=== PATIENT | female | born 1955 | race Caucasian/White ===

== ENCOUNTER 2020-08-04 07:02 | Outpatient (NON) | payer BC, MEDICAID, SELFPAY ==
[2020-08-04 22:01] LABS: SARS-CoV-2 RNA PCR Negative
== END 2020-08-04 07:03 ==
PROVIDERS: PCP Internal Medicine; Visit Provider Nurse Practitioner
DX: Z20.828 Contact with and (suspected) exposure to other viral communicable diseases (principal); R68.89 Other general symptoms and signs
CPT/HCPCS: 87635; C9803; U0003

== ENCOUNTER 2021-08-17 12:03 | Outpatient (CLI) | payer MEDICAID, SELFPAY ==
--- NOTE | ~2021-08-17 | XR_ITS ---
EXAMINATION: XR wrist RT min 3V DATE: 08/17/2021 12:29 INDICATION: Right wrist osteoarthritis. TECHNIQUE: 4 views of right wrist were obtained. COMPARISON: None. FINDINGS: Scapholunate dissociation is noted. There is severe osteoarthritis of distal radioulnar estrellita nt and radiolunate joint. There is remodeling of distal ulna and proximal lunate, consistent with uln olunate impaction syndrome. There is moderate osteoarthritis of first carpometacarpal joint. Partiall y visualized is osteoarthritis of many of the metacarpophalangeal joints, severe at first metacarpoph alangeal joint. IMPRESSION: 1. Polyarticular osteoarthritis. 2. Scapholunate dissociation. Reviewed, dictated and finalized at location B. E ENGRAVER
--- NOTE | ~2021-08-17 | XR_ITS ---
EXAMINATION: XR wrist LT min 3V DATE: 08/17/2021 12:29 INDICATION: Left wrist osteoarthritis. TECHNIQUE: 4 views of left wrist were obtained. COMPARISON: Left hand radiographs 09/29/2016 FINDINGS: Scapholunate dissociation is noted. There is dorsal tilt of lunate, consistent with dorsal intercalated segmental instability. There is degenerative volume loss at radial aspect of lunate. The re is mild osteoarthritis of first carpometacarpal joint and moderate osteoarthritis of triscaphe estrellita nt. 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 3. Polyarticular osteoarthritis. Reviewed, dictated and finalized at location B. WRAPPER MACHINE OPERATOR
== END 2021-08-17 12:04 | disposition home or self-care (01) ==
LOC: ANHIMG 12:11
PROVIDERS: PCP Internal Medicine; Visit Provider Plastic Surgery
DX: M19.031 Primary osteoarthritis, right wrist (principal); M19.032 Primary osteoarthritis, left wrist
CPT/HCPCS: 73110

== ENCOUNTER 2021-08-24 02:25 | Day surgery (SDC) | payer OTHER, SELFPAY ==
[2021-08-17 10:17] VITALS: BMI 20.2
--- NOTE | 2021-08-17 10:26 | PC.NURSE ---
Report to the Outpatient Waiting Room, entrance under the green pavilion located off [facility], at time 0730 on date 08/24/21. OR Time: 0930. - You will be asked a series of questions to screen for COVID 19 for your protection. - A mask is required within the hospital. - No visitors are allowed at this time. Patient visitors will be guided where to wait when not with patient. Preoperative COVID Testing Requirements: TO BRING COVID CARD DOS No COVID Test needed if: (proof is required; if not received patient will have Rapid Test prior to entry) - Patient has received COVID Vaccine at least 14 days prior to procedure date or - Patient has positive COVID test result within last 90 days of surgery date. COVID Test needed if above criteria is not met If not COVID vaccinated a COVID test must be conducted within 72 hours of surgery and patient is asked to isolate self from time of testing until procedure. You will go to the [facility] [[email or web address]] Testing Site for your COVID testing. The [facility] site is located at the corner of [address] from [facility]. You will only be called if COVID results are positive and your surgeon may reschedule your elective surgery date. Patients may have clear liquids (water, carbonated beverages, clear teas, apple juice) until 3 hours prior to surgery with a maximum of 20 ounces. - No food from midnight until time of surgery Take the following medications with a SIP of water the morning of surgery: EYE DROPS Medications to discontinue per physician: VITAMINS/SUPPLEMENTS Date to take last dose: 08/20/21 STOP IBUPROFEN AND EXCEDRIN PER DR. ARREDONDO'S INSTRUCTIONS Please no make-up, nail mauritian, hairspray, perfume, deodorant, or body powder the day of surgery. No jewelry (including any body piercings) or valuables the day of surgery, leave them at home. Please take a shower or bath the night before, or the morning of, surgery with an antibacterial soap. Wear comfortable, loose fitting clothing. Children are encouraged to wear pajamas. - Jewelry must be removed prior to entering the operating room. Rings and piercings that are not removed may be cut off. - The hospital will not accept responsibility for valuables. - Please leave all valuables, including medications, at home the day of surgery. If you are going home after surgery, a licensed driver helper must drive you home. - NO public transportation without another adult. - We recommend that an adult stay with you for 24 hours following discharge. - We also recommend that you do not drive, make important decision, drink alcoholic beverages, or take any drugs that were not prescribed by your health care provider for at least 24 hours after your discharge time. Follow any additional instructions given to you from your surgeon. Telephone instructions given to ASIM ZABALA and asked if any additional questions and then verbalized understanding. Patient advised to call surgeon office or pre surgery nurse liaison [phone] if any additional questions.
--- NOTE | 2021-08-24 07:13 | WPDHPUPDATE1 ---
History and Physical Update Update Date/Time: 08/24/21 07:13 History and Physical has been reviewed, including an updated exam of the patient. There are NO changes in the patient's condition. Risks, benefits, and alternatives have been discussed and questions answered. Patient agrees to proceed with procedure.
[2021-08-24] MEDS: LACTATED RINGERS 1,000 ML 30 ML IV CONT (07:55)
[2021-08-24 08:08] VITALS: BP 120/60; PULSE 78; RESP 18; TEMP 36.5; O2SAT 100; BMI 20.1
--- NOTE | 2021-08-24 08:41 | WPDANESEPPF ---
Anes - Initial Pre Proc Eval Procedure: Operation Date: 08/24/21 09:30 Proposed Procedures p Left Open Carpal Tunnel Release - Richar Hung MD Date/Time: 08/24/21 08:41 Surgeon: Richar Hung MD Pre Op Diagnosis: Left Carpal Tunnel Syndrome Patient Data Age: 65 Gender: F Height: 1.64 m Weight: 54.15 kg Last Vital Signs Temp 36.5 C 08/24/21 08:08 Pulse 78 08/24/21 08:08 Resp 18 08/24/21 08:08 BP 120/60 08/24/21 08:08 Pulse Ox 100 08/24/21 08:08 Allergies Allergy/AdvReac Type Severity Reaction Status Date / Time penicillin G Allergy Unknown rash Verified 08/24/21 07:35 Penicillins Allergy Unknown rash Verified 08/24/21 07:35 Home Medications Medication Instructions Recorded Confirmed Type omega-3 fatty acids 500 mg capsule 500 mg PO DAILY 06/01/20 08/24/21 History alprazolam [Xanax] 0.5 mg PO HS 08/17/21 08/24/21 History bgydmvm-dukikzdcxhrvb-wfedmfby 1 tablet PO Q4-6H PRN 08/17/21 08/17/21 History [Excedrin Migraine] ibuprofen [Advil] 400 mg PO ONCE PRN 08/17/21 08/17/21 History lifitegrast [Xiidra] 1 drp EACH EYE BID 08/17/21 08/24/21 History Patient hx anesthesia problems: none Family hx anesthesia problems: none Results Review: All pre-operative results and documents have been reviewed as part of the pre-operative evaluation. [facility] Past Medical History Medical History Anxiety Hx of migraines Social History Social History Years smoked: 30 Smoking status: Current every day smoker Tobacco type: cigarettes Alcohol intake: current Drinks per week: 8 Substance use: never Substance use type: does not use Living arrangements: alone Spiritual care concerns: No Anes - Eval Final PreProcedure Day of Procedure 08/24/21 08:41 Patient weight: normal Heart: regular rate and rhythm Lungs: decreased breath sounds Airway: Mallampati scale class II Neurological: alert and oriented Last oral intake: >/= 8 hours ASA classification: III Emergent: no Anesthetic plan: proceed Anesthesia type and monitoring: general GIVS and standard monitoring Results Review: All pre-operative results and documents have been reviewed as part of the pre-operative evaluation. Informed Consent: The patient's anesthetic plan and its attendant risks and benefits were discussed with the patient/family/POA. Questions were solicited and answers provided to the satisfaction of the patient/family/POA.
--- NOTE | 2021-08-24 09:35 | SUR.PREOP ---
PT INFORMED THAT DR. ARREDONDO IS FINISHING UP WITH THE CASE BEFORE HERS AND THAT IT WILL BE APPROXIMATELY 1000, UNDERSTANDING VOICED. PT DENIES NEEDS.
[2021-08-24] MEDS: LIDO 1%/EPINEPHRINE 1:100,000 50 ML VIAL INFILTRATE (10:01)
[2021-08-24] MEDS: KETOROLAC 30 MG/ML VIAL (*BKC) IV PUSH (10:30)
[2021-08-24] MEDS: BACITRACIN OINTMENT 15 GM TUBE 1 APPLIC TOPICAL (10:33)
[2021-08-24 10:40] VITALS: BP 97/61; PULSE 65; RESP 18; O2SAT 96
--- NOTE | 2021-08-24 10:51 | W.PM.PROC2 ---
Procedure Note - Detailed Date of Procedure 08/24/21 Pre-op Diagnosis Left Carpal Tunnel Syndrome Post-op Diagnosis same Procedure Performed Left open carpal tunnel release Surgeon Richar Hung MD Anesthesia MAC Description of Procedure The skin over the patient's carpal tunnel was marked in the holding area. She was taken to the operating room where she was placed supine on the operating table. A time-out was held and confirmed. She was given IV sedation as the extremity was prepped and draped in usual fashion. The surgical site was marked for the incision and locally infiltrated with 1% lidocaine with epinephrine. The tourniquet was inflated to 250 mmHg. The incision was made as marked and dissection was carried bluntly through the subcutaneous tissue to the palmar aponeurosis. This and the transverse carpal retinaculum were incised with a 15 blade opening the canal. Under 3 point retraction the ligament was divided distally and proximally to completely release it. No unusual anatomy was noted. The wound was closed with interrupted nylon suture. The tourniquet was released. The usual bandage was applied. She was discharged home with instructions in wound care and follow-up. Estimated Blood Loss 0 Tourniquet Time 7 Drains No Packing No Complications No immediate complications Condition stable Disposition same day
[2021-08-24 11:10] VITALS: BP 104/64; PULSE 67; RESP 18
[2021-08-24 11:40] VITALS: BP 100/65; PULSE 65; RESP 18
[2021-08-24 12:10] VITALS: BP 115/69; PULSE 65; RESP 18
== END 2021-08-24 12:20 | disposition home or self-care (01) ==
PROVIDERS: PCP Internal Medicine; Visit Provider Plastic Surgery
PROC: (CPT 64721; principal; 2021-08-24 09:30)
DX: G56.02 Carpal tunnel syndrome, left upper limb (principal); F41.9 Anxiety disorder, unspecified; F17.210 Nicotine dependence, cigarettes, uncomplicated
CPT/HCPCS: 64721; A9270; J1885; J2250; J2405; J2704; J7120

== ENCOUNTER 2024-12-19 10:09 | Inpatient (IN) | payer MEDICARE, MEDICAID, SELFPAY ==
[2024-12-19] VITALS (17 sets, daily range): BP systolic 113–146; BP diastolic 62–78; PULSE 70–88; RESP 16–20; TEMP 36.3–36.9; O2SAT 83–100; BMI 22.5
--- NOTE | ~2024-12-19 | CT_ITS ---
EXAMINATION: CT pelvis wo con DATE: 12/19/2024 11:11 INDICATION: Fall with left hip pain TECHNIQUE: High resolution computed tomography (CT) of the pelvis was performed without intravenous c ontrast. Additional sagittal and coronal reconstructions were performed. Automated exposure control a nd iterative reconstruction technique were employed. The dose-length product was 135.59 mGy-cm. COMPARISON: None FINDINGS: Nondisplaced sagittally oriented fracture at the lateral aspect of the right sacral ala which extends into the right sacroiliac joint. There is a fracture craniocaudally across the junction of the left pubic body and the left superior and inferior pubic rami. There is a second fracture of the more late ral left inferior pubic ramus with 5 mm lateral displacement of the medial sided fragment. Nondisplac ed fracture with cortical and dilation of the right inferior pubic ramus. Minimally displaced fractur e of the right superior pubic ramus. No fracture of the acetabular or visualized proximal femurs. The re is stranding about the pubic rami fractures. No significant hematoma. Bladder appears normal. Uter us and bilateral adnexa are unremarkable. Visualized portions of bowels, lower poles of both kidneys, fundus of the gallbladder and caudal aspect right hepatic lobe are all unremarkable. Severe lower kirk mbar spondylosis. See separate lumbar spine CT for further detail. IMPRESSION: 1. Acute bilateral superior and inferior pubic rami fractures and fracture of the right sacral ala. Reviewed, dictated and finalized at location A. IMPRESSION: 1. Acute bilateral superior and inferior pubic rami fractures and fracture of t he right sacral ala.
--- NOTE | ~2024-12-19 | XR_ITS ---
EXAMINATION: XR hip LT 2V w AP pelvis DATE: 12/19/2024 10:42 INDICATION: Left hip pain post fall TECHNIQUE: Anteroposterior view of the pelvis and anteroposterior and frog-leg lateral views of the l eft hip were obtained. COMPARISON: None. FINDINGS: Mildly displaced fracture at the junction of the left superior and inferior pubic rami and the left p ubic body. Likely old healed fractures of the right superior and inferior pubic rami. No other fractu res identified. Specifically no fracture of the proximal left femur or left acetabulum. Mild osteoart hritis at the bilateral hip and sacroiliac joints. Severe lumbar spondylosis. Mild osteitis pubis. IMPRESSION: 1. Mildly displaced fractures of the medial left superior and inferior pubic rami. 2. Likely old healed right superior and inferior pubic rami fractures. Reviewed, dictated and finalized at location A. IMPRESSION: 1. Mildly displaced fractures of the medial left superior and inferior pubic ra mi. 2. Likely old healed right superior and inferior pubic rami fractures.
--- NOTE | ~2024-12-19 | CT_ITS ---
EXAMINATION: CT lumbar spine wo con DATE: 12/19/2024 11:06 INDICATION: Trauma with left pelvic pain TECHNIQUE: Computed tomography (CT) of the lumbar spine was performed without intravenous contrast. A utomated exposure control and iterative reconstruction technique were employed. The dose-length produ ct was 308.15 mGy-cm. COMPARISON: None FINDINGS: Mild S-shaped curvature of the lumbar spine with 10 degrees upper lumbar levocurvature and 10 degrees lower lumbar dextrocurvature. Sagittal alignment is normal. Vertebral body heights are nor mal. No fracture in the lumbar spine. There is a nondisplaced right sacral ala fracture extending darion ng involving a small portion of the inferior aspect of the right sacroiliac joint. Multilevel severe disc height loss with associated sclerotic degenerative endplate changes with right-sided predominanc e at L1-L2 and L2-L3 and left-sided prominence at L3-L4 and L4-5 diffusely at L5-S1. The following di sc levels are specifically discussed: T12-L1: Disc is bulging. There is mild bilateral facet joint osteoarthritis. There is no neural jazlyn inal stenosis. There is mild central canal stenosis. L1-L2: Disc is bulging. There is mild to moderate bilateral facet joint osteoarthritis. There is mode rate right and mild left neural foraminal stenosis. There is mild central canal stenosis. L2-L3: Disc is bulging. There is mild right and moderate left facet joint osteoarthritis. There is mo derate bilateral neural foraminal stenosis. There is mild to moderate central canal stenosis. L3-L4: Disc is bulging. There is mild to moderate right and severe left facet joint osteoarthritis. T here is moderate left and mild to moderate right neural foraminal stenosis. There is moderate to becca re central canal stenosis. L4-L5: Disc is bulging. There is severe bilateral facet joint osteoarthritis. There is moderate left and mild to moderate right neural foraminal stenosis. There is moderate to severe central canal steno sis. L5-S1: Disc is bulging. There is severe bilateral facet joint osteoarthritis. There is moderate bilat eral neural foraminal stenosis. There is moderate central canal stenosis. IMPRESSION: 1.. Nondisplaced fracture of the right sacral ala. 2. Severe lumbar spondylosis no acute osseous abnormality in the lumbar spine. Reviewed, dictated and finalized at location A.
--- NOTE | 2024-12-19 10:15 | ECG_ITS ---
Test Date: 2024-12-19 10:17:54 Measurements Intervals [place] Rate: 77 P: 82 [place]: 175 QRS: 95 QRSD: 80 T: 80 QT: 390 QTc: 443 Interpretive Statements SINUS RHYTHM POSSIBLE LEFT ATRIAL ENLARGEMENT [-0.1mV P WAVE IN V1/V2] BORDERLINE RIGHT AXIS DEVIATION [QRS AXIS > 90] No previous ECG available for comparison Electronically Signed On 12-19-2024 11:40:51 CDT by Hernan Chisholm M.D.
--- NOTE | 2024-12-19 10:55 | ED_ITS ---
HPI - General Adult General Chief complaint: Extremity Injury, Lower Stated complaint: L hip pain s/p fall last noc Time Seen by Provider: 12/19/24 10:32 History of Present Illness HPI narrative: 69-year-old female presenting to the emergency department for evaluation for left hip pain. Patient reports she had a headboard from a large bed pin her to the floor. She states the headboard did land on her. Patient reports he did feel a pop in her left hip. Patient denies striking her head denies any loss of consciousness. Patient states that the time she was able to be assisted to a recliner but stayed in the recliner all night. Patient was then assisted to the bathroom this morning and required a lot of assistance. Patient denies any other pain other than the left hip and left groin. Related Data Home Medications ?Medication ?Instructions ?Recorded ?Confirmed ?Last Taken ?Type gqxvttz-gitxulbniktqu-fttkcpfw 250 1 tablet PO Q4-6H PRN Migraine 08/17/21 12/19/24 Unknown History mg-250 mg-65 mg tablet (Excedrin Headache Migraine) Allergies Allergy/AdvReac Type Severity Reaction Status Date / Time penicillin G Allergy Unknown rash Verified 06/16/24 09:45 Penicillins Allergy Unknown rash Verified 06/16/24 09:45 Review of Systems 2 Review of Systems: All systems reviewed & are unremarkable except as noted in HPI and below PMFSH Past Medical History Medical History Post-menopausal Hx of migraines Anxiety Mixed hyperlipidemia Surgical History Surgical History History of carpal tunnel release Family History Family History Father Acute myocardial infarction Social History Social History Smoking packs per day: 0.5 Smoking cigarettes per day: 10.0 Years smoked: 30 Smoking pack-years: 15.00 Smoking status: Current every day smoker Tobacco type: cigarettes Alcohol intake: current Drinks per week: 14 Substance use: never Substance use type: marijuana Do You Feel Safe in your Home?: Yes Lack of Transportation: No Lack of Food: Never True Current Housing: I Have Housing Concerned About Future Housing: No Difficulty Paying Gas/Electric Bills: No Difficulty Paying for Meds: No Currently Unemployed: No Education: Trade/Vocational Certificate Difficulty w/ Childcare or Family Care: No Living arrangements: alone Spiritual care concerns: No Exam 2 Narrative: APPEARANCE: Uncomfortable appearing HEAD: normocephalic, atraumatic. EYES: PERRLA/EOMI, conjunctivae clear. NOSE: Normal no drainage EARS:TMS clear with good light reflex. THROAT: Pharynx clear, no exudate. NECK: Supple. No adenopathy, no masses. RESPIRATORY: Airway patent, respirations nonlabored. Clear to auscultation bilaterally, no rales, rhonchi, wheezing. CARDIOVASCULAR: Regular rate and rhythm without murmurs rubs or gallops. ABDOMINAL: Soft, nontender, nondistended, normal bowel sounds MUSCULOSKELETAL: Left hip and left pelvis tenderness to palpation, no pain with passive range of motion left hip or right hip, neurovascularly intact NEURO: Alert. Cranial nerves II through XII intact. Good gait. Good coordination SKIN: Warm, dry. Normal Color Course Vital Signs Vital signs: Vital Signs Temperature 97.9 F 12/19/24 10:11 Pulse Rate 77 12/19/24 10:11 Respiratory Rate 16 12/19/24 10:11 Blood Pressure 129/78 12/19/24 10:11 Pulse Oximetry 99 12/19/24 10:11 Oxygen Delivery Room Air 12/19/24 10:11 Temperature 97.4 F L 12/19/24 14:00 Pulse Rate 70 12/19/24 14:00 Respiratory Rate 16 12/19/24 14:00 Blood Pressure 132/75 12/19/24 14:00 Pulse Oximetry 100 12/19/24 14:00 Oxygen Delivery Room Air 12/19/24 10:11 Medical Decision Making MDM Narrative Medical decision making narrative: 69-year-old female presented to the emergency department for evaluation for left hip pain. Patient does have pubic tenderness to palpation tenderness of the left hip. CT scan of the pelvis does show bilateral superior and inferior pubic rami fractures along with a sacral ala fracture. Patient will be admitted for PT OT due to difficulty with ambulation and to care for herself. Orthopedics was consulted and was comfortable with patient weight-bearing as tolerated using a walker. Patient family were comfortable with plan for admission and PT OT. Case was discussed with hospitalist. All questions concerns were addressed. Differential Diagnosis Differential Diagnosis: Femur fracture, hip fracture, pelvic fracture, subdural hematoma, subarachnoid hemorrhage Vital Signs Vital Signs: Vital Signs Temperature 97.9 F 12/19/24 10:11 Pulse Rate 77 12/19/24 10:11 Respiratory Rate 16 12/19/24 10:11 Blood Pressure 129/78 12/19/24 10:11 Pulse Oximetry 99 12/19/24 10:11 Oxygen Delivery Room Air 12/19/24 10:11 Temperature 97.4 F L 12/19/24 14:00 Pulse Rate 70 12/19/24 14:00 Respiratory Rate 16 12/19/24 14:00 Blood Pressure 132/75 12/19/24 14:00 Pulse Oximetry 100 12/19/24 14:00 Oxygen Delivery Room Air 12/19/24 10:11 Lab Data Lab results reviewed: Yes I reviewed the patient's lab results. 12/19/24 11:28 12/19/24 11:28 Labs: Lab Results 12/19/24 Range/Units 11:28 WBC 9.3 (4.5-10.0) K/mm3 RBC 4.60 (4.2-5.4) M/mm3 Hgb 13.3 (12.0-15.0) g/dL Hct 41.9 (37.0-47.0) % MCV 91.1 (80-100) fl MCH 28.9 (26-34) pg MCHC 31.7 L (32-36) g/dl RDW 13.1 (11.5-14.5) % Plt Count 264 (150-375) k/mm3 MPV 9.4 (7.4-10.4) fl Immature Gran % (Auto) 0.8 H (0-0.5) % Neut % (Auto) 78.5 H (45.5-73.1) % Lymph % (Auto) 13.2 L (18.3-44.2) % [place] % (Auto) 6.6 (2.6-8.5) % Eos % (Auto) 0.4 (0-4.4) % Baso % (Auto) 0.5 (0.2-1.2) % Lymph # (Auto) 1.22 (0.9-3.2) K/mm3 [place] # (Auto) 0.6 (0.1-0.6) K/mm3 Eos # (Auto) 0.0 (0-0.3) K/mm3 Baso # (Auto) 0.1 (0.0-0.1) K/mm3 Abs Immat Gran (auto) 0.07 H (0.00-0.031) K/mm3 Absolute Neuts (auto) 7.3 H (1.3-6.7) K/mm3 Absolute Nucleated RBC 0.000 (0.0-0.012) K/mm3 Nucleated RBC % 0.0 (0.0-0.2) % PT 13.4 (11.1-14.7) Seconds INR 1.0 APTT 21.5 L (22.3-36.8) Seconds Sodium 136 L (137-145) mmol/L Potassium 4.1 (3.4-5.0) mmol/L Chloride 102 (98-107) mmol/L Carbon Dioxide 28 (22-30) mmol/L Anion Gap 6 (4-12) mmol/L BUN 18 H (7-17) mg/dL Creatinine 0.53 L (0.7-1.0) mg/dL Estim Creat Clear Calc 75 ml/min Estimated GFR > 60 (59 - ) Glucose 104 (65-110) mg/dL Calcium 9.0 (8.4-10.2) mg/dL Total Bilirubin 1.0 (0.2-1.3) mg/dL AST 35 (14-36) U/L ALT 36 H (6-35) U/L Alkaline Phosphatase 90 (38-126) U/L Total Protein 7.0 (6.3-8.2) g/dL Albumin 4.1 (3.5-5.1) g/dL Imaging Data Radiologist's impression: Impressions Hip/Pelvis X-Ray 12/19/24 10:47 IMPRESSION: 1. Mildly displaced fractures of the medial left superior and inferior pubic rami. 2. Likely old healed right superior and inferior pubic rami fractures. Lumbar Spine CT 12/19/24 11:17 IMPRESSION: 1.. Nondisplaced fracture of the right sacral ala. 2. Severe lumbar spondylosis no acute osseous abnormality in the lumbar spine. Pelvis CT 12/19/24 11:26 IMPRESSION: 1. Acute bilateral superior and inferior pubic rami fractures and fracture of the right sacral ala. Discharge Plan Discharge Clinical Impression: Bilateral fracture of pubic rami Patient Disposition: Still a Patient Condition: Stable
[2024-12-19] MEDS: HYDROmorphone HCL INJ (*CRX) 2 MG/ML VIAL 0.5 MG IV PUSH (11:26)
[2024-12-19] MEDS: CYCLOBENZAPRINE HCL 10 MG TABLET PO (11:27)
[2024-12-19 11:35] LABS: Basophils Absolute Auto 0.1 K/mm3 (0.0-0.1); Basophils Percent Auto 0.5 % (0.2-1.2); Eosinophils Percent Auto 0.4 % (0-4.4); Hematocrit 41.9 % (37.0-47.0); Hemoglobin 13.3 g/dL (12.0-15.0); Immature Granulocyte Absolute 0.07 K/mm3 (0.00-0.031); Immature Granulocyte Percent A 0.8 % (0-0.5); Lymphocytes Absolute Auto 1.22 K/mm3 (0.9-3.2); Lymphocytes Percent Auto 13.2 % (18.3-44.2); Mean Corpuscular HGB Conc 31.7 g/dl (32-36); Mean Corpuscular Hemoglobin 28.9 pg (26-34); Mean Corpuscular Volume 91.1 fl (80-100); Mean Platelet Volume 9.4 fl (7.4-10.4); Monocytes Absolute Auto 0.6 K/mm3 (0.1-0.6); Monocytes Percent Auto 6.6 % (2.6-8.5); Neutrophils Absolute Auto 7.3 K/mm3 (1.3-6.7); Neutrophils Percent Auto 78.5 % (45.5-73.1); Platelet Count Result 264 k/mm3 (150-375); Red Cell Distribution Width 13.1 % (11.5-14.5); White Blood Count 9.3 K/mm3 (4.5-10.0)
[2024-12-19 11:48] LABS: Alanine Aminotransferase 36 U/L (6-35); Albumin Level 4.1 g/dL (3.5-5.1); Alkaline Phosphatase 90 U/L (38-126); Anion Gap 6 mmol/L (4-12); Aspartate Amino Transferase 35 U/L (14-36); Blood Urea Nitrogen 18 mg/dL (7-17); Carbon Dioxide 28 mmol/L (22-30); Chloride 102 mmol/L (98-107); Estimated CRCL calculation 75 ml/min; Estimated Glomerular Filt Rate > 60; Glucose 104 mg/dL (65-110); Potassium 4.1 mmol/L (3.4-5.0); Sodium 136 mmol/L (137-145)
[2024-12-19 11:52] LABS: Partial Thromboplastin Time 21.5 Seconds (22.3-36.8); Prothrombin Time 13.4 Seconds (11.1-14.7)
--- NOTE | 2024-12-19 14:52 | P.HP_ITS ---
H&P: HPI History of Present Illness Date/Time: 12/19/24 14:52 Chief Complaint: Hip pain Narrative: This is a very pleasant 69 year female patient with past medical history of migraines anxiety osteoarthritis and hyperlipidemia not currently treated any pharmacological means as well as previous surgery of carpal tunnel presented to the emergency room today with complaints left hip pain. Patient states that yesterday she was attempting to be a simple a bed and the headboard of the bed that was very bulky fell over landing on her and knocking her to the ground. Patient endorses landing on to her hips. She denied any head injury or loss of consciousness. Upon landing she felt a pop in the left hip. Patient was able to be helped into her recliner after the fall but states she was there all night and unable to move. The pain is a constant dull ache that is worse with any active range of motion and radiates into the left groin. She denies any symptoms radiating into the leg or red flag symptoms of saddle anesthesia or loss of bowel or bladder control/constipation or urinary retention. Patient presented to the emergency room because she was having so much discomfort. Socially, the pt is a chronic user of Nicotine, reports daily use of Marijuana and drinks at least 2-3 beers daily. 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 Here in the emergency room workup was performed with imaging. Plain x-ray of pelvis demonstrating a mildly displaced fracture of the medial and superior left pubic rami, plain film x-ray of lumbar spine showing a nondisplaced fracture of the right sacral ala and CT of the pelvis reflecting both findings on plain film x-rays including mildly displaced fractures of the medial and superior left pubic rami and a nondisplaced fracture of the right sacral ala. laboratory workup including coags, CBC and metabolic panel were all unremarkable. Orthopedics, Dr. Louise, was consulted by ER physician, advised no surgical intervention necessary but will follow in the inpatient setting. Patient is admitted to hospitalist service this time for further workup with PT/OT evaluation, pain control and development of plan for discharge. Review of Systems Review of Systems: All systems reviewed & are unremarkable except as noted in HPI and below PMFSH Past Medical History Medical History Post-menopausal Hx of migraines Anxiety Mixed hyperlipidemia Surgical History Surgical History History of carpal tunnel release Family History Family History Father Acute myocardial infarction Social History Social History Smoking packs per day: 0.5 Smoking cigarettes per day: 10.0 Years smoked: 30 Smoking pack-years: 15.00 Smoking status: Current every day smoker Tobacco type: cigarettes Alcohol intake: current Drinks per week: 14 Substance use: never Substance use type: marijuana Do You Feel Safe in your Home?: Yes Lack of Transportation: No Lack of Food: Never True Current Housing: I Have Housing Concerned About Future Housing: No Difficulty Paying Gas/Electric Bills: No Difficulty Paying for Meds: No Currently Unemployed: No Education: Trade/Vocational Certificate Difficulty w/ Childcare or Family Care: No Living arrangements: alone Spiritual care concerns: No Meds Home Medications and Allergies Home Medications ?Medication ?Instructions ?Recorded ?Confirmed ?Type iotonbd-umruptizzxflu-jnziiwei 250 1 tablet PO Q4-6H PRN Migraine 08/17/21 06/16/24 History mg-250 mg-65 mg tablet (Excedrin Headache Migraine) alprazolam 1 mg tablet 1 mg PO BID PRN anxiety #60 tabs 12/11/24 Rx Allergies Allergy/AdvReac Type Severity Reaction Status Date / Time penicillin G Allergy Unknown rash Verified 06/16/24 09:45 Penicillins Allergy Unknown rash Verified 06/16/24 09:45 Vital Signs Vital Signs - 24 hr 12/19/24 10:11 12/19/24 10:15 12/19/24 10:16 Temperature 97.9 F 97.9 F Pulse Rate 77 78 79 Respiratory Rate 16 18 18 Blood Pressure 129/78 146/74 H Pulse Oximetry 99 100 100 Oxygen Delivery Room Air 12/19/24 10:31 12/19/24 11:15 12/19/24 11:46 Temperature 97.8 F Pulse Rate 81 85 82 Respiratory Rate 17 18 16 Blood Pressure 129/75 120/74 134/67 Pulse Oximetry 100 98 96 Oxygen Delivery 12/19/24 11:47 12/19/24 12:00 12/19/24 12:01 Temperature Pulse Rate 88 79 80 Respiratory Rate 17 19 19 Blood Pressure 120/66 Pulse Oximetry 96 97 94 Oxygen Delivery 12/19/24 12:15 12/19/24 12:16 12/19/24 12:30 Temperature Pulse Rate 80 81 82 Respiratory Rate 17 18 17 Blood Pressure 116/62 Pulse Oximetry 93 96 Oxygen Delivery 12/19/24 12:31 Temperature Pulse Rate 86 Respiratory Rate 17 Blood Pressure 113/70 Pulse Oximetry 97 Oxygen Delivery Exam Const: General: comfortable and no acute distress Other: This elderly female patient is lying supine on the stretcher at this time. While laying still she is without discomfort or complaint. Eyes: General: appearance normal, both eyes and all related structures Sclera: sclerae normal Pupils: Equal, round and reactive pupils present EOM: EOMs intact bilaterally Neck: Neck: supple and no JVD Chest: Other: Non-tender to palpation Resp: Effort & Inspection: normal respiratory effort Auscultation: clear to auscultation bilaterally Cardio: Rate: regular rate Rhythm: regular rhythm Heart sounds: no gallops, no murmurs and no rubs GI: Inspection: non-distended GI Palp: Yes Soft to palpation and No Tenderness to palpation present (GI) Auscultation: normal bowel sounds Back/Spine/Pelvis: Other: Pelvic girdle palpation is tender to palpation. No obvious s/s of dislocation. Skin: General skin exam: normal color Other: Bruising noted to Right medial wrist and abrasion to right elbow. FROM present of all joints. Neuro: Speech: normal speech Sensory Exam: normal sensation Other: No focal abnormalities noted. Gait not tested. Extrem: General: normal exam except as noted Other: Bilateral hands with osteoarthritic appearance. There is FROM, but bruising is noted on the medial right wrist and abrasion noted to right elbow. Neurovascular status is intact. Leg lengths equal. Psych: Mental Status: mental status grossly normal Affect: normal affect H&P: Results Labs Labs: Short CBC 12/19/24 Range/Units 11:28 WBC 9.3 (4.5-10.0) K/mm3 Hgb 13.3 (12.0-15.0) g/dL Hct 41.9 (37.0-47.0) % Plt Count 264 (150-375) k/mm3 BMP 12/19/24 11:28 Sodium 136 L Potassium 4.1 Chloride 102 Carbon Dioxide 28 BUN 18 H Creatinine 0.53 L Glucose 104 Calcium 9.0 Liver Function 12/19/24 Range/Units 11:28 Total Bilirubin 1.0 (0.2-1.3) mg/dL AST 35 (14-36) U/L ALT 36 H (6-35) U/L Alkaline Phosphatase 90 (38-126) U/L Albumin 4.1 (3.5-5.1) g/dL Assessment and Plan Assessment and plan (1) Pubic ramus fracture: Code(s): S32.599A - Other specified fracture of unspecified pubis, initial encounter for closed fracture Status: Acute Assessment and Plan: * as evidenced by findings of the XR of the pelvis and the x-ray the spine as well as CT scan of pelvis * ortho has been consulted and injuries are nonsurgical. They will continue to follow along with medicine. * PT/OT ordered for evaluation and discharge recommendations * pain control as needed * fall precautions (2) Abnormality of gait and mobility: Code(s): R26.9 - Unspecified abnormalities of gait and mobility Status: Acute Assessment and Plan: * See #1 (3) Primary osteoarthritis of both hands: Code(s): M19.041 - Primary osteoarthritis, right hand; M19.042 - Primary osteoarthritis, left hand Status: Chronic Assessment and Plan: * PRN pain meds (4) Tobacco abuse: Code(s): Z72.0 - Tobacco use Status: Chronic Assessment and Plan: * Nicotine patch ordered. * 5-10 minutes of nicotine cessation counseling was done with importance stressed on need for healing of fracture. (5) Mixed hyperlipidemia: Code(s): E78.2 - Mixed hyperlipidemia Status: Chronic Assessment and Plan: * No current pharmacological treatment per pt. * Heart healthy diet Quality VTE Prophylaxis VTE prophylaxis: pharmacologic ordered Hospitalist MIPS Advance Care Plan I have confirmed that the patient's Advanced Care Plan is present, code status is documented, or surrogate decision maker is listed in patient medical record.: Yes Medication Reconciliation I have utilized all available resources to obtain, update and review the patients current medications (includes all prescriptions, OTC, herbals, cannabis, and nutritional supplements).: Yes
--- OUTSIDE RECORDS SUMMARY | 2024-12-19 16:28 | XMS_ITS | CONTINUITY OF CARE DOCUMENT ---
Author Name rosa lee Address Unknown Organization [facility] Address [address] [place] [address] Phone [phone] Care Team Providers Care Branch Sales And Service Representative Name Role Phone JP LIM, HARDEEP Unavailable INSURANCE PROVIDERS Payer name Policy type / Coverage type [employer] party ID [facility] [id number]
[2024-12-19] MEDS: MORPHINE SULFATE (*CRX) 4 MG/ML INJ IV PUSH (17:52)
[2024-12-19] MEDS: IBUPROFEN 600 MG TABLET PO (18:57)
[2024-12-19] MEDS: NICOTINE (*PBKC) 21 MG PATCH 1 PATCH TRANSDERM (20:17)
[2024-12-19] MEDS: ALPRAZolam (*CRX) 0.5 MG TABLET 1 MG PO (20:17)
[2024-12-19] MEDS: HYDROcodone/acetaminophen (*CRX) 5-325 MG TABLET 1 TAB PO (20:18)
[2024-12-20] MEDS: HYDROcodone/acetaminophen (*CRX) 5-325 MG TABLET 1 TAB PO ×2 (05:13→12:20)
[2024-12-20 06:00] VITALS: BP 132/76; PULSE 80; RESP 18; TEMP 36.6; O2SAT 100
[2024-12-20 06:18] LABS: Basophils Absolute Auto 0.1 K/mm3 (0.0-0.1); Basophils Percent Auto 0.8 % (0.2-1.2); Eosinophils Absolute Auto 0.1 K/mm3 (0-0.3); Eosinophils Percent Auto 1.9 % (0-4.4); Hematocrit 42.3 % (37.0-47.0); Hemoglobin 13.2 g/dL (12.0-15.0); Immature Granulocyte Absolute 0.03 K/mm3 (0.00-0.031); Immature Granulocyte Percent A 0.4 % (0-0.5); Lymphocytes Absolute Auto 1.94 K/mm3 (0.9-3.2); Lymphocytes Percent Auto 25.9 % (18.3-44.2); Mean Corpuscular HGB Conc 31.2 g/dl (32-36); Mean Corpuscular Hemoglobin 28.7 pg (26-34); Mean Platelet Volume 9.3 fl (7.4-10.4); Monocytes Absolute Auto 0.5 K/mm3 (0.1-0.6); Monocytes Percent Auto 6.7 % (2.6-8.5); Neutrophils Absolute Auto 4.8 K/mm3 (1.3-6.7); Neutrophils Percent Auto 64.3 % (45.5-73.1); Platelet Count Result 212 k/mm3 (150-375); White Blood Count 7.5 K/mm3 (4.5-10.0)
[2024-12-20 06:33] LABS: Alanine Aminotransferase 26 U/L (6-35); Albumin Level 3.6 g/dL (3.5-5.1); Alkaline Phosphatase 90 U/L (38-126); Anion Gap 4 mmol/L (4-12); Aspartate Amino Transferase 21 U/L (14-36); Bilirubin,Total 0.8 mg/dL (0.2-1.3); Blood Urea Nitrogen 15 mg/dL (7-17); Calcium 8.5 mg/dL (8.4-10.2); Carbon Dioxide 29 mmol/L (22-30); Chloride 101 mmol/L (98-107); Estimated CRCL calculation 68 ml/min; Estimated Glomerular Filt Rate > 60; Glucose 91 mg/dL (65-110); Potassium 3.3 mmol/L (3.4-5.0); Sodium 134 mmol/L (137-145)
[2024-12-20] MEDS: ENOXAPARIN 40 MG/0.4 ML SYRINGE SUB-Q (08:31)
[2024-12-20] MEDS: MORPHINE SULFATE (*CRX) 4 MG/ML INJ IV PUSH ×2 (08:31→19:55)
[2024-12-20] MEDS: NICOTINE (*PBKC) 21 MG PATCH 1 PATCH TRANSDERM (08:31)
[2024-12-20] MEDS: IBUPROFEN 600 MG TABLET PO (08:32)
[2024-12-20] MEDS: ALPRAZolam (*CRX) 0.5 MG TABLET 1 MG PO ×2 (08:33→19:56)
--- NOTE | 2024-12-20 09:52 | P.PNIM_ITS ---
Progress Note: A&P Assessment and Plan (1) Pubic ramus fracture: Code(s): S32.599A - Other specified fracture of unspecified pubis, initial encounter for closed fracture Status: Acute Assessment and Plan: * as evidenced by findings of the XR of the pelvis and the x-ray the spine as well as CT scan of pelvis * ortho has been consulted and injuries are nonsurgical. They will continue to follow along with medicine. * PT/OT ordered for evaluation and discharge recommendations * pain control as needed * fall precautions * awaiting ortho eval (2) Abnormality of gait and mobility: Code(s): R26.9 - Unspecified abnormalities of gait and mobility Status: Acute Assessment and Plan: * See #1 (3) Primary osteoarthritis of both hands: Code(s): M19.041 - Primary osteoarthritis, right hand; M19.042 - Primary osteoarthritis, left hand Status: Chronic Assessment and Plan: * PRN pain meds (4) Tobacco abuse: Code(s): Z72.0 - Tobacco use Status: Chronic Assessment and Plan: * Nicotine patch ordered. * 5-10 minutes of nicotine cessation counseling was done with importance stressed on need for healing of fracture. (5) Mixed hyperlipidemia: Code(s): E78.2 - Mixed hyperlipidemia Status: Chronic Assessment and Plan: * No current pharmacological treatment per pt. * Heart healthy diet Plan DVT prophylaxis on Sq lovenox Subjective Date/time seen: 12/20/24 09:52 Interval history: Comfortable at bedside Review of Systems Review of Systems: All systems reviewed & are unremarkable except as noted in HPI and below Exam Const: General: comfortable and no acute distress Other: This elderly female patient is lying supine on the stretcher at this time. While laying still she is without discomfort or complaint. Eyes: General: appearance normal, both eyes and all related structures Sclera: sclerae normal Pupils: Equal, round and reactive pupils present EOM: EOMs intact bilaterally Neck: Neck: supple and no JVD Chest: Other: Non-tender to palpation Resp: Effort & Inspection: normal respiratory effort Auscultation: clear to auscultation bilaterally Cardio: Rate: regular rate Rhythm: regular rhythm Heart sounds: no gallops, no murmurs and no rubs GI: Inspection: non-distended Auscultation: normal bowel sounds Back/Spine/Pelvis: Other: Pelvic girdle palpation is tender to palpation. No obvious s/s of dislocation. Skin: General skin exam: normal color Other: Bruising noted to Right medial wrist and abrasion to right elbow. FROM present of all joints. Neuro: Cranial nerves: Yes Equal, round and reactive pupils present Speech: normal speech Sensory Exam: normal sensation Other: No focal abnormalities noted. Gait not tested. Extrem: General: normal exam except as noted Other: Bilateral hands with osteoarthritic appearance. There is FROM, but bruising is noted on the medial right wrist and abrasion noted to right elbow. Neurovascular status is intact. Leg lengths equal. Psych: Mental Status: mental status grossly normal Affect: normal affect Objective Data Vital Signs Vital Signs: Vital Signs - 24 hr 12/19/24 10:11 12/19/24 10:15 12/19/24 10:16 Temperature 97.9 F 97.9 F Pulse Rate 77 78 79 Respiratory Rate 16 18 18 Blood Pressure 129/78 146/74 H Pulse Oximetry 99 100 100 Oxygen Delivery Room Air Fraction of Inspired Oxygen 12/19/24 10:31 12/19/24 11:15 12/19/24 11:46 Temperature 97.8 F Pulse Rate 81 85 82 Respiratory Rate 17 18 16 Blood Pressure 129/75 120/74 134/67 Pulse Oximetry 100 98 96 Oxygen Delivery Fraction of Inspired Oxygen 12/19/24 11:47 12/19/24 12:00 12/19/24 12:01 Temperature Pulse Rate 88 79 80 Respiratory Rate 17 19 19 Blood Pressure 120/66 Pulse Oximetry 96 97 94 Oxygen Delivery Fraction of Inspired Oxygen 12/19/24 12:15 12/19/24 12:16 12/19/24 12:30 Temperature Pulse Rate 80 81 82 Respiratory Rate 17 18 17 Blood Pressure 116/62 Pulse Oximetry 93 96 Oxygen Delivery Fraction of Inspired Oxygen 12/19/24 12:31 12/19/24 13:20 12/19/24 14:00 Temperature 97.4 F L Pulse Rate 86 70 Respiratory Rate 17 16 Blood Pressure 113/70 132/75 Pulse Oximetry 97 100 Oxygen Delivery Room Air Fraction of Inspired Oxygen 12/19/24 20:00 12/19/24 21:11 12/19/24 22:00 Temperature 98.4 F Pulse Rate 83 87 83 Respiratory Rate 18 20 18 Blood Pressure 146/75 H Pulse Oximetry 97 94 83 L Oxygen Delivery Room Air Room Air Fraction of Inspired Oxygen 21 21 05/04/25 06:00 Temperature 97.9 F Pulse Rate 80 Respiratory Rate 18 Blood Pressure 132/76 Pulse Oximetry 100 Oxygen Delivery Fraction of Inspired Oxygen Intake/Output Intake/Output: Intake & Output 12/17/24 12/18/24 12/19/24 12/20/24 23:59 23:59 23:59 23:59 Intake Total 120 240 Output Total 200 Balance -80 240 Meds/Results Medications: Active Medications Generic Name Dose Route Start Last Admin Trade Name Freq PRN Reason Stop Dose Admin Acetaminophen 1,000 mg 12/19/24 15:31 Acetaminophen 500 Mg Tablet PO Q6H PRN Mild Pain (1-3) or Fever Acetaminophen/Aspirin/Caffeine 1 tablet 12/19/24 15:36 Acetaminophen/Aspirin/Caffeine 250-250-65 Mg Tablet PO Q4-6H PRN Migraine Headache Hydrocodone Bitart/Acetaminophen 1 tab 12/19/24 15:31 12/20/24 05:13 Hydrocodone/Acetaminophen (*Crx) 5-325 Mg Tablet PO 1 tab Q6H PRN Administration Pain Rated 4-6 Alprazolam 1 mg 12/19/24 15:36 12/20/24 08:33 Alprazolam (*Crx) 0.5 Mg Tablet PO 1 mg BID PRN Administration anxiety Enoxaparin Sodium 40 mg 12/20/24 09:00 12/20/24 08:31 Enoxaparin 40 Mg/0.4 Ml Syringe SUB-Q 40 mg DAILY ABNER Administration Ibuprofen 600 mg 12/19/24 17:17 12/20/24 08:32 Ibuprofen 600 Mg Tablet PO 600 mg Q6H PRN Administration Mild Pain (1-3) or Headache Morphine Sulfate 4 mg 12/19/24 15:31 12/20/24 08:31 Morphine Sulfate (*Crx) 4 Mg/Ml Inj IV PUSH 4 mg Q4H PRN Administration Pain Rated 7-10 Nicotine 1 patch 12/19/24 09:00 12/20/24 08:31 Nicotine (*Pbkc) 21 Mg Patch TRANSDERM 1 patch DAILY ABNER Administration Radiology Results: ITS Impressions Hip/Pelvis X-Ray 12/19/24 10:47 IMPRESSION: 1. Mildly displaced fractures of the medial left superior and inferior pubic rami. 2. Likely old healed right superior and inferior pubic rami fractures. Lumbar Spine CT 12/19/24 11:17 IMPRESSION: 1.. Nondisplaced fracture of the right sacral ala. 2. Severe lumbar spondylosis no acute osseous abnormality in the lumbar spine. Pelvis CT 12/19/24 11:26 IMPRESSION: 1. Acute bilateral superior and inferior pubic rami fractures and fracture of the right sacral ala. Labs Labs: Laboratory Results - last 24 hr 12/19/24 12/20/24 11:28 05:36 WBC 9.3 7.5 RBC 4.60 4.60 Hgb 13.3 13.2 Hct 41.9 42.3 MCV 91.1 92.0 MCH 28.9 28.7 MCHC 31.7 L 31.2 L RDW 13.1 13.0 Plt Count 264 212 MPV 9.4 9.3 Immature Gran % (Auto) 0.8 H 0.4 Neut % (Auto) 78.5 H 64.3 Lymph % (Auto) 13.2 L 25.9 Sully % (Auto) 6.6 6.7 Eos % (Auto) 0.4 1.9 Baso % (Auto) 0.5 0.8 Lymph # (Auto) 1.22 1.94 Sully # (Auto) 0.6 0.5 Eos # (Auto) 0.0 0.1 Baso # (Auto) 0.1 0.1 Abs Immat Gran (auto) 0.07 H 0.03 Absolute Neuts (auto) 7.3 H 4.8 Absolute Nucleated RBC 0.000 0.000 Nucleated RBC % 0.0 0.0 PT 13.4 INR 1.0 APTT 21.5 L Sodium 136 L 134 L Potassium 4.1 3.3 L Chloride 102 101 Carbon Dioxide 28 29 Anion Gap 6 4 BUN 18 H 15 Creatinine 0.53 L 0.59 L Estim Creat Clear Calc 75 68 Estimated GFR > 60 > 60 Glucose 104 91 Calcium 9.0 8.5 Magnesium 2.0 Total Bilirubin 1.0 0.8 AST 35 21 ALT 36 H 26 Alkaline Phosphatase 90 90 Total Protein 7.0 6.0 L Albumin 4.1 3.6 Quality VTE Prophylaxis VTE prophylaxis: pharmacologic ordered
[2024-12-20 14:00] VITALS: BP 110/58; PULSE 84; RESP 16; TEMP 36.3; O2SAT 96
[2024-12-20 20:00] VITALS: PULSE 92; RESP 18; O2SAT 100
[2024-12-20 22:00] VITALS: BP 124/59; PULSE 92; RESP 18; TEMP 36.1; O2SAT 100
[2024-12-21] MEDS: MORPHINE SULFATE (*CRX) 4 MG/ML INJ IV PUSH (00:17)
[2024-12-21] MEDS: HYDROcodone/acetaminophen (*CRX) 5-325 MG TABLET 1 TAB PO ×3 (04:50→14:25)
[2024-12-21 06:00] VITALS: BP 143/87; PULSE 89; RESP 18; TEMP 36.9; O2SAT 98
[2024-12-21 06:08] LABS: Basophils Percent Auto 0.5 % (0.2-1.2); Eosinophils Absolute Auto 0.2 K/mm3 (0-0.3); Hematocrit 41.9 % (37.0-47.0); Hemoglobin 13.5 g/dL (12.0-15.0); Immature Granulocyte Absolute 0.03 K/mm3 (0.00-0.031); Immature Granulocyte Percent A 0.4 % (0-0.5); Lymphocytes Percent Auto 28.7 % (18.3-44.2); Mean Corpuscular HGB Conc 32.2 g/dl (32-36); Mean Corpuscular Hemoglobin 28.9 pg (26-34); Mean Corpuscular Volume 89.7 fl (80-100); Mean Platelet Volume 9.4 fl (7.4-10.4); Monocytes Absolute Auto 0.5 K/mm3 (0.1-0.6); Neutrophils Absolute Auto 4.7 K/mm3 (1.3-6.7); Neutrophils Percent Auto 61.4 % (45.5-73.1); Platelet Count Result 235 k/mm3 (150-375); Red Blood Count 4.67 M/mm3 (4.2-5.4); Red Cell Distribution Width 12.9 % (11.5-14.5); White Blood Count 7.7 K/mm3 (4.5-10.0)
[2024-12-21 06:39] LABS: Alanine Aminotransferase 21 U/L (6-35); Albumin Level 3.6 g/dL (3.5-5.1); Alkaline Phosphatase 89 U/L (38-126); Anion Gap 5 mmol/L (4-12); Aspartate Amino Transferase 27 U/L (14-36); Bilirubin,Total 0.7 mg/dL (0.2-1.3); Blood Urea Nitrogen 14 mg/dL (7-17); Calcium 8.6 mg/dL (8.4-10.2); Carbon Dioxide 28 mmol/L (22-30); Chloride 100 mmol/L (98-107); Estimated CRCL calculation 71 ml/min; Estimated Glomerular Filt Rate > 60; Glucose 94 mg/dL (65-110); Potassium 3.6 mmol/L (3.4-5.0); Sodium 133 mmol/L (137-145)
[2024-12-21 08:00] VITALS: O2SAT 98
[2024-12-21] MEDS: NICOTINE (*PBKC) 21 MG PATCH 1 PATCH TRANSDERM (09:38)
[2024-12-21] MEDS: ENOXAPARIN 40 MG/0.4 ML SYRINGE SUB-Q (09:39)
--- NOTE | 2024-12-21 11:02 | P.CONOP_ITS ---
Assessment and Plan Assessment and plan (1) Pubic ramus fracture: Code(s): S32.599A - Other specified fracture of unspecified pubis, initial encounter for closed fracture Status: Acute (2) Bilateral fracture of pubic rami: Code(s): S32.591A - Other specified fracture of right pubis, initial encounter for closed fracture; S32.592A - Other specified fracture of left pubis, initial encounter for closed fracture Status: Acute Plan Acute bilateral superior and inferior pubic rami fractures and fracture of the right sacral ala. The fractures are nondisplaced and stable. She may weight bear as tolerated. Expect significant pain for the first several weeks. May benefit from rehab placement. May follow-up with x-rays in the clinic in 4-6 weeks. History of Present Illness HPI Consult date: 12/21/24 Chief complaint: Left hip pain Narrative: Patient reports she had a headboard from a large bed pin her to the floor. She states the headboard did land on her. Patient reports he did feel a pop in her left hip. Patient denies striking her head denies any loss of consciousness. Patient states that the time she was able to be assisted to a recliner but stayed in the recliner all night. Patient was then assisted to the bathroom this morning and required a lot of assistance. Patient denies any other pain other than the left hip and left groin. Review of Systems 2 Review of Systems: All systems reviewed & are unremarkable except as noted in HPI and below PMFSH Past Medical History Medical History Post-menopausal Hx of migraines Anxiety Mixed hyperlipidemia Surgical History Surgical History History of carpal tunnel release Family History Family History Father Acute myocardial infarction Social History Social History Smoking packs per day: 0.5 Smoking cigarettes per day: 10.0 Years smoked: 30 Smoking pack-years: 15.00 Smoking status: Current every day smoker Tobacco type: cigarettes Alcohol intake: current Drinks per week: 14 Substance use: never Substance use type: marijuana Do You Feel Safe in your Home?: Yes Lack of Transportation: No Lack of Food: Never True Current Housing: I Have Housing Concerned About Future Housing: No Difficulty Paying Gas/Electric Bills: No Difficulty Paying for Meds: No Currently Unemployed: No Education: Trade/Vocational Certificate Difficulty w/ Childcare or Family Care: No Living arrangements: alone Spiritual care concerns: No Meds Home Medications and Allergies Home Medications ?Medication ?Instructions ?Recorded ?Confirmed ?Type rpnncie-lrbsbetpjmagz-edsztpac 250 1 tablet PO Q4-6H PRN Migraine 08/17/21 12/19/24 History mg-250 mg-65 mg tablet (Excedrin Headache Migraine) alprazolam 1 mg tablet 1 mg PO BID PRN anxiety #60 tabs 12/11/24 12/19/24 Rx hydrocodone 5 mg-acetaminophen 325 1 tablet PO Q4H PRN Pain Rated 4-6 12/21/24 Rx mg tablet 10 days #10 tabs nicotine 21 mg/24 hr daily 1 patch transdermal DAILY 14 days 12/21/24 Rx transdermal patch (Nicoderm CQ) #14 ea Allergies Allergy/AdvReac Type Severity Reaction Status Date / Time penicillin G Allergy Unknown rash Verified 06/16/24 09:45 Penicillins Allergy Unknown rash Verified 06/16/24 09:45 Vital Signs Vital Signs - 24 hr 12/20/24 14:00 12/20/24 20:00 12/20/24 22:00 Temperature 36.3 C L 36.1 C L Pulse Rate 84 92 92 Respiratory Rate 16 18 18 Blood Pressure 110/58 L 124/59 L Pulse Oximetry 96 100 100 Oxygen Delivery Room Air Fraction of Inspired Oxygen 21 12/21/24 06:00 12/21/24 08:00 Temperature 36.9 C Pulse Rate 89 Respiratory Rate 18 Blood Pressure 143/87 H Pulse Oximetry 98 98 Oxygen Delivery Room Air Fraction of Inspired Oxygen Exam 2 Narrative: Alert oriented x3. Vital signs stable. Appears uncomfortable. She is able to mobilize with a walker. She is bearing full weight on the left and partial on the right. No clinical deformity or effusion. No distal edema. Neurovascular status intact. Results Labs 12/21/24 05:17 12/21/24 05:17 Labs: Abnormal lab results 12/21/24 Range/Units 05:17 Sodium 133 L (137-145) mmol/L Creatinine 0.56 L (0.7-1.0) mg/dL Total Protein 6.0 L (6.3-8.2) g/dL H & H 12/19/24 12/20/24 12/21/24 Range/Units 11:28 05:36 05:17 Hgb 13.3 13.2 13.5 (12.0-15.0) g/dL Hct 41.9 42.3 41.9 (37.0-47.0) % Coagulation 12/19/24 Range/Units 11:28 INR 1.0 All other labs normal.
[2024-12-21 14:00] VITALS: BP 101/50; PULSE 94; RESP 14; TEMP 36.3; O2SAT 97
--- NOTE | 2024-12-21 14:10 | PM.DS ---
DS: Admitting Diagnosis Discharge Date 12/21/24 Admitting Diagnosis Hip pain DS: Discharge Diagnosis Discharge Diagnosis (1) Pubic ramus fracture: Code(s): S32.599A - Other specified fracture of unspecified pubis, initial encounter for closed fracture Status: Acute (2) Bilateral fracture of pubic rami: Code(s): S32.591A - Other specified fracture of right pubis, initial encounter for closed fracture; S32.592A - Other specified fracture of left pubis, initial encounter for closed fracture Status: Acute DS: Summary Hospital Course Hospital Course: This is a very pleasant 69 year female patient with past medical history of migraines anxiety osteoarthritis and hyperlipidemia not currently treated any pharmacological means as well as previous surgery of carpal tunnel presented to the emergency room today with complaints left hip pain. Patient states that yesterday she was attempting to be a simple a bed and the headboard of the bed that was very bulky fell over landing on her and knocking her to the ground. Patient endorses landing on to her hips. She denied any head injury or loss of consciousness. Upon landing she felt a pop in the left hip. Patient was able to be helped into her recliner after the fall but states she was there all night and unable to move. The pain is a constant dull ache that is worse with any active range of motion and radiates into the left groin. She denies any symptoms radiating into the leg or red flag symptoms of saddle anesthesia or loss of bowel or bladder control/constipation or urinary retention. Patient presented to the emergency room because she was having so much discomfort. Socially, the pt is a chronic user of Nicotine, reports daily use of Marijuana and drinks at least 2-3 beers daily. 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 Here in the emergency room workup was performed with imaging. Plain x-ray of pelvis demonstrating a mildly displaced fracture of the medial and superior left pubic rami, plain film x-ray of lumbar spine showing a nondisplaced fracture of the right sacral ala and CT of the pelvis reflecting both findings on plain film x-rays including mildly displaced fractures of the medial and superior left pubic rami and a nondisplaced fracture of the right sacral ala. laboratory workup including coags, CBC and metabolic panel were all unremarkable. Orthopedics, Dr. Louise, was consulted by ER physician, advised no surgical intervention necessary but will follow in the inpatient setting. Ortho was consulted and recommended supportive care. PT/OT evaluated and recommended Home health. Patient discharged on PRN Baxter. F/u with PCP in 3-5 days and F/u with ortho as instructed Time Spent with Patient Time attestation: Total time spent providing and/or coordinating discharge services: DS: Data Data Completed and Pending Labs on day of discharge: Labs from last 24 hours 12/21/24 05:17 WBC 7.7 RBC 4.67 Hgb 13.5 Hct 41.9 MCV 89.7 MCH 28.9 MCHC 32.2 RDW 12.9 Plt Count 235 MPV 9.4 Immature Gran % (Auto) 0.4 Neut % (Auto) 61.4 Lymph % (Auto) 28.7 [place] % (Auto) 7.0 Eos % (Auto) 2.0 Baso % (Auto) 0.5 Lymph # (Auto) 2.20 [place] # (Auto) 0.5 Eos # (Auto) 0.2 Baso # (Auto) 0.0 Abs Immat Gran (auto) 0.03 Absolute Neuts (auto) 4.7 Absolute Nucleated RBC 0.000 Nucleated RBC % 0.0 Sodium 133 L Potassium 3.6 Chloride 100 Carbon Dioxide 28 Anion Gap 5 BUN 14 Creatinine 0.56 L Estim Creat Clear Calc 71 Estimated GFR > 60 Glucose 94 Calcium 8.6 Magnesium 2.0 Total Bilirubin 0.7 AST 27 ALT 21 Alkaline Phosphatase 89 Total Protein 6.0 L Albumin 3.6 Discharge Plan Discharge Attending physician on discharge: Arcenio Scott Consulting providers: Javier Louise Discharging Clinician: Arcenio Scott Anticipated Discharge Date/Time: 12/21/24 14:07 Patient Disposition: Home Activity: as tolerated Diet: as tolerated Patient Instructions: Antibiotic Form Patient Language: Libyan Stand Alone Forms: General Discharge Information Follow-up/Referrals: Javier Louise MD [Physician] - 4 Weeks (call for appointment) Discharge Medications: New hydrocodone-acetaminophen 5-325 mg Tablet 1 tablet PO Q4H PRN (Reason: Pain Rated 4-6) 10 Days Qty: 10 0RF nicotine [Nicoderm CQ] 21 mg/24 hr Patch 24 Hour 1 patch transdermal DAILY 14 Days Qty: 14 0RF Continued Excedrin Migraine 250-250-65 mg Tablet 1 tablet PO Q4-6H PRN (Reason: Migraine Headache) alprazolam 1 mg tablet 1 mg PO BID PRN (Reason: anxiety) Qty: 60 0RF Date of admission: 12/20/24 14:24 Primary Care Provider: Emile Nolan Admitting Provider: Arcenio Scott Attending physician on admission: Arcenio Scott Condition: Stable
== END 2024-12-21 15:11 | disposition home health service (06) | DRG 536 ==
LOC: ANHED 12:19 → ANH3MEDSUR 12:37
PROVIDERS: Nurse Practitioner Adult Health; Admitting Provider Internal Medicine; Emergency Provider Emergency Medicine; PCP Family Medicine; Visit Provider Internal Medicine
DX: S32.592A Other specified fracture of left pubis, initial encounter for closed fracture (principal); W22.8XXA Striking against or struck by other objects, initial encounter; F17.290 Nicotine dependence, other tobacco product, uncomplicated; F41.9 Anxiety disorder, unspecified; M19.042 Primary osteoarthritis, left hand; M19.041 Primary osteoarthritis, right hand; Z88.0 Allergy status to penicillin
CPT/HCPCS: 36415; 72131; 72192; 73502; 80053; 83735; 85025; 85610; 85730; 93005; 96374; 96376; 97110; 97116; 97162; 97165; 97530; 97535; 99285; A9270; G0378; J1171; J1650; J2270

== ENCOUNTER 2025-08-13 13:24 | Outpatient (CLI) | payer MEDICARE, SELFPAY ==
--- NOTE | ~2025-08-13 | DEXA_ITS ---
Bone Density Report Name: ASIM ZABALA Age: 69 Sex: Female Ethnicity: White Date of : 1955 Indication: postmenopausal; screening for osteoporosis; height loss; Referring Provider: JONH JOHNS Study: Bone densitometry was performed. Exam Date: August 13, 2025 Accession number: [id number] Bone Density: Region BMD T-score Z-score Classification AP Spine(L1-L4) 0.958 -0.8 1.1 Normal Femoral Neck (Left) 0.490 -3.2 -1.6 Osteoporosis Total Hip (Left) 0.581 -3.0 -1.6 Osteoporosis Femoral Neck (Right) 0.519 -3.0 -1.3 Osteoporosis Total Hip (Right) 0.625 -2.6 -1.2 Osteoporosis Total Hip Mean 0.603 -2.8 -1.4 Osteoporosis World Health Organization criteria for BMD impression classify patients as: Normal (T-score at or above -1.0), Osteopenia (T-score between -1.0 and -2.5), or Osteoporosis (T-score at or below -2.5). 10-year Fracture Risk: FRAX not reported because: Some T-score for Spine Total or Hip Total or Femoral Neck at or below -2.5 Clinical Information Provided by Patient: Smokes Has used the following medications: Vitamin D, Calcium Patient maximum height was 65 Menopause Age: 47 Does not regularly consume dairy products Drinks caffeinated beverages Onset of menses at age 16 Number of children 3 Impression: The patient has osteoporosis, based on the Left Femoral Neck T-score. The patient has risk factors, including: smoking. Discussion: INCREASED RISK OF FRACTURE. BONE DENSITY IS UNDESIRABLY LOW AT ONE OR MORE SKELETAL SITES, CONSISTENT WITH POSTMENOPAUSAL OSTEOPOROSIS. This patient's lowest T-score meets the World Health Organization's (WHO) criteria for osteoporosis at one or more sites (T-score -2.5 or below). In untreated patients, the risk of osteoporotic fracture increases approximately two-fold for each 1.0 SD decrease in T-score. Low bone density is not the only risk factor for fracture; also consider factors such as patient's age, frailty or poor health, risk of falling, risk of injury, previous osteoporotic fracture, family history of osteoporosis, cigarette smoking, low body weight, etc. Not everyone with low bone mineral density has osteoporosis; osteomalacia and other metabolic bone disorders should also be considered. Patients who have osteoporosis should be evaluated for specific diseases and conditions (secondary causes) that may cause or contribute to bone loss. The [place] [employer] Clinical Endocrinologists (AACE) and National Osteoporosis Foundation (NOF) recommend pharmacologic intervention for all postmenopausal women whose T-score is in this range. The patient should follow a healthful lifestyle (good nutrition with adequate calcium and vitamin D, and appropriate weight-bearing exercise). Follow-Up: Consider a repeat BMD and Vertebral Fracture Assessment (VFA) exam in 2 years or sooner if medically necessary, to reassess this patient's status. Reported by: LO on 08/13/2025 1:45:00 PM. Reviewed, dictated and finalized at location A.
== END 2025-08-13 13:25 | disposition home or self-care (01) ==
LOC: MICIMG 13:24
PROVIDERS: PCP Nurse Practitioner Family; Visit Provider Nurse Practitioner Family
DX: Z78.0 Asymptomatic menopausal state (principal); M81.0 Age-related osteoporosis without current pathological fracture
CPT/HCPCS: 77080

== ENCOUNTER 2025-08-16 15:12 | Outpatient (CLI) | payer MEDICARE, SELFPAY ==
--- NOTE | ~2025-08-16 | MM_ITS ---
EXAMINATION: MM screening blessing BI w terell HISTORY: Z12.39 - Encounter for other screening for malignant neop... TECHNIQUE: Craniocaudal and mediolateral oblique 3-D tomosynthesis images were obtained and synthetic 2-D images were generated. CAD analysis was submitted and interpreted. COMPARISON: 2017 BREAST PARENCHYMAL COMPOSITION: There are scattered areas of fibroglandular tissue. FINDINGS: There is a mass in the 12-1 o'clock right breast in the mid depth. There are no suspicious calcifications. No unexplained architectural distortion is seen. There are no skin or nipple abnormalities identified. There is no adenopathy seen on the images submitted. IMPRESSION: Mass on the right for which ultrasound is recommended. BI-RADS 0 - Incomplete - needs additional imaging evaluation Reviewed, dictated and finalized at location C. O [employer]
== END 2025-08-16 15:13 | disposition home or self-care (01) ==
LOC: MICIMG 15:12
PROVIDERS: PCP Nurse Practitioner Family; Visit Provider Nurse Practitioner Family
DX: Z12.31 Encounter for screening mammogram for malignant neoplasm of breast (principal)
CPT/HCPCS: 77063; 77067